=== PATIENT | male | born 1970 | race Caucasian/White ===

== ENCOUNTER 2021-09-28 10:53 | Outpatient (CLI) | payer BC | END 2021-09-28 10:54 | disposition home or self-care (01) | LOC: CSHMRI 10:53 | PROVIDERS: ATTEND Internal Medicine | DX: M54.50 Low back pain, unspecified (principal); M47.816 Spondylosis without myelopathy or radiculopathy, lumbar region | CPT/HCPCS: 72148 ==

== ENCOUNTER 2023-08-09 09:00 | Outpatient (CLI) | payer BC ==
[2023-08-09] MEDS ORDERED: Magnevist 469MG/ML 20 ML VIAL ONE (14:51)
== END 2023-08-09 09:01 | disposition home or self-care (01) ==
LOC: CSHMRI 09:00
PROVIDERS: ATTEND Psychiatry & Neurology Neurology
DX: G51.32 Clonic hemifacial spasm, left (principal); H74.8X2 Other specified disorders of left middle ear and mastoid
CPT/HCPCS: 70553; A9579